=== PATIENT | female | born 1980 | race Asian ===

== ENCOUNTER 2024-01-26 15:24 | Outpatient (CLI) | payer OTHER ==
[2024-01-26 15:55] LABS: BASOPHILS % (AUTO) 0.4 % (0.0-2.0); HEMATOCRIT 42.5 % (36-48); HEMOGLOBIN 13.4 g/dL (12.0-16.0); LYMPHOCYTES # (AUTO) 1.6 K/uL (1.0-5.5); LYMPHOCYTES % (AUTO) 15.7 % (20.5-51.5); MEAN CORPUSCULAR HEMOGLOBIN 23 pg (27-31); MEAN CORPUSCULAR HGB CONC 32 % (32-36); MEAN CORPUSCULAR VOLUME 73 fL (79.0-98.0); MONOCYTES # (AUTO) 0.2 K/uL (0.0-1.0); MONOCYTES % (AUTO) 1.7 % (1.7-9.3); NEUTROPHILS # (AUTO) 8.2 K/uL (1.8-7.7); NEUTROPHILS % (AUTO) 82.2 % (40.0-70.0); PLATELET COUNT (AUTO) 411 K/uL (130-430); RED BLOOD CELL COUNT(AUTO) 5.86 MIL/uL (4.2-6.2); RED CELL DISTRIBUTION WIDTH 14.1 % (9.0-15.0)
[2024-01-26 15:57] LABS: BILIRUBIN,URINE NEGATIVE (NEGATIVE); BLOOD, URINE 1+ (NEGATIVE); CLARITY/URINE CLEAR (CLEAR); COLOR,URINE YELLOW (YELLOW); GLUCOSE,URINE NEGATIVE (NEGATIVE); KETONES,URINE NEGATIVE (NEGATIVE); LEUKOCYTE ESTERASE ,URINE NEGATIVE (NEGATIVE); NITRITE, URINE NEGATIVE (NEGATIVE); PROTEIN URINE NEGATIVE (NEGATIVE); UROBILINOGEN,URINE 0.2 (0.2-1.0)
[2024-01-26 16:12] LABS: WBC,URINE 0-3 /HPF (0-3)
[2024-01-26 16:13] LABS: BACTERIA,URINE FEW /HPF (None Seen)
[2024-01-26 16:26] LABS: ALBUMIN 4.2 g/dL (3.4-4.8); CREATININE 1.05 mg/dL (0.55-1.30); POTASSIUM 4.2 mmol/L (3.5-5.1); THYROID STIMULATING HORMONE 0.43 uIu/mL (0.36-3.74); TOTAL BILIRUBIN 0.5 mg/dL (0.0-1.0); TOTAL PROTEIN, SERUM 9.7 g/dL (6.4-8.3)
[2024-01-26 17:12] LABS: HYPOCHROMASIA 1+; OVALOCYTES FEW; STOMATOCYTES FEW
[2024-01-26 17:26] LABS: FREE T4 (FREE THYROXINE) 1.1 ng/dL (0.6-1.6)
== END 2024-01-26 20:18 | disposition home or self-care (01) ==
LOC: SLB 15:24
PROVIDERS: ATTEND Family Medicine
DX: Z00.00 Encounter for general adult medical examination without abnormal findings (principal); R94.6 Abnormal results of thyroid function studies
CPT/HCPCS: 36415; 80053; 80061; 81000; 81001; 81015; 83037; 84439; 84443; 84481; 85025

== ENCOUNTER 2024-01-27 15:21 | Outpatient (CLI) | payer OTHER | END 2024-01-27 19:04 | disposition home or self-care (01) | LOC: SMA 15:21 → EDUNIT# 15:30 → SMA 19:04 | PROVIDERS: ATTEND Family Medicine | DX: Z12.31 Encounter for screening mammogram for malignant neoplasm of breast (principal); M77.32 Calcaneal spur, left foot; M77.31 Calcaneal spur, right foot | CPT/HCPCS: 77067 ==